=== PATIENT | female | born 1970 | race Two or more races ===

== ENCOUNTER 2025-04-02 08:34 | Emergency (ER) | payer MEDICAID, SELFPAY ==
[2025-04-02 08:35] VITALS: BMI 36.6
[2025-04-02 08:51] VITALS: BP 138/78; PULSE 64; RESP 18; TEMP 36.7; O2SAT 97
--- NOTE | 2025-04-02 08:58 | XR_ITS ---
Examination: CT brain head without contrast. 2-D sagittal coronal reconstructions Date and time of exam: 04/02/2025 0959 hrs Indications;: ground level fall, head pain CTDI: vol (mGy):48 DLP: (mGycm):928 Technique: Multiple CT axial sections of the brain have been obtained, 5 mm slice thickness. Contrast has not been administered. 2-D sagittal, coronal reconstructions have been obtained Low dose protocols were performed. One or more of the following dose reduction techniques were used; automated exposure control, adjustment of the mA and/or KV according to patient size, use of iterative reconstruction technique. Findings: No significant ventricular enlargement. Intra-axial or extra-axial hemorrhage density is not seen. No mass effect or midline shift Basal cisterns are not remarkable. Fourth ventricle is midline. Cranial vault intact. Impression: Negative for acute hemorrhage, mass effect or midline shift
--- NOTE | 2025-04-02 08:58 | XR_ITS ---
Examination: left elbow 3 views Technique: Elbow AP, oblique, lateral 3 views Exam date and time: 04/02/2025 0905 hours INdications: fell today with injury to elbow, pain Findings: No fracture or dislocation No elbow effusion Impression: No fracture or dislocation
--- NOTE | 2025-04-02 08:58 | XR_ITS ---
Examination: CT cervical spine without contrast 2-D sagittal reconstructions 2-D coronal reconstructions 3-D reconstructions. Exam date and time:04/02/2025 0959 hrs CTDI:vol (mGy) 16.5 DLP: (mGycm) 328 Indications ground level fall with neck pain Technique: Multiple 2 mm axial sections of the cervical spine have been obtained. The coronal and sagittal reconstructions have been obtained. 3-D reconstructions have been obtained. Low dose protocols were performed. One or more of the following dose reduction techniques were used; automated exposure control, adjustment of the mA and/or KV according to patient size, use of iterative reconstruction technique. Findings: Axial sections demonstrate intact base of the skull. C1 exhibit satisfactory relationship to the odontoid. No acute cervical vertebral body fracture seen. Alignment posterior spinous processes satisfactory. Impression: No acute cervical fracture.
--- NOTE | 2025-04-02 09:30 | EDNOTE_ITS ---
ED Fall Injury RME/HPI General Chief Complaint: Fall Stated Complaint: INJURY LEFT ELBOW AND HIT HEAD S/P FALL, NO LOC Time Seen by Provider: 04/02/25 08:48 Arrival date/time: 04/02/25 08:34 This is a 54-year-old female that comes into the emergency room with complaints of fall that happened prior to arrival. Patient states that she fell backwards and hit the back of her head. Patient states she slipped while cleaning the house. Patient had no loss of consciousness. Patient has a small hematoma to the back of her head and she has a small laceration to her left elbow area. Patient denies any other complaints. Related Data Previous Rx's ?Medication ?Instructions ?Recorded acetaminophen 650 mg 650 mg PO Q6HR PRN pain #20 tabs 05/08/19 tablet,extended release ibuprofen 600 mg tablet 600 mg PO Q6H PRN pain #20 t abs 05/08/19 ibuprofen 800 mg tablet 800 mg PO Q6H PRN pain #14 t abs 04/02/25 Allergies Allergy/AdvReac Type Severity Reaction Status Date / Time No Known Allergies Allergy Verified 04/02/25 08:37 Review of Systems Review of Systems Systems Reviewed: All systems reviewed, normal except as documented Past Medical History Surgical History SURGICAL: Positive Tubal Ligation Social History SMOKING STATUS: Never smoker Travel History EBOLA RISK: No ED Exam Narrative Physical exam: VITAL SIGNS: Reviewed. GENERAL APPEARANCE: Alert and interactive, follows commands, no acute distress HEAD AND FACE: Small hematoma to the back of patient had approximately nickel size. No open lacerations to her head. ENT: PERRL, conjuctiva pink and clear, eyelid no trauma, Mucous membrane moist. NECK: Supple, nontender, no nuchal rigidity. CHEST: No tenderness, no crepitus, no paradoxical movement, no retractions. LUNGS: breathing even and unlabored HEART: Regular rate, cap refill less than 2 seconds ABDOMEN: Soft, nondistended, no guarding, nontender, no rebound, no masses, NEUROLOGICAL: Gross motor function intact sensory function intact, Appropriate for age. MUSCULOSKELETAL: low back nontender, full range of motion. EXTREMITIES: No redness no swelling no skin breakdown on bilateral foot and leg. Distal neurovascular status intact bilateral foot SKIN: Color pink, dry, approximately 2 cm laceration to left elbow Course Quality Measures none Orders Category Date Time Status Cleanse Wound NEEDED Care 04/02/25 08:[address] cervical spine wo con Stat Exams 04/02/25 08:[address] head/brain wo con Stat Exams 04/02/25 08:58 Completed XR elbow comp LT min 3V Stat Exams 04/02/25 08:58 Completed Acetaminophen Tab [Tylenol ES Tab] Med 04/02/25 08:58 Discontinued 1,000 mg PO X1 ONE Ibuprofen Tab [Motrin Tab] Med 04/02/25 11:05 Discontinued 800 mg PO X1 ONE Lidocaine 1% 20 ml [Xylocaine 1% 20 ML] Med 04/02/25 08:59 Discontinued 10 ml INFL X1 ONE TET,DIP/PERT AC (Adult)-Tdap [Boostrix Adult (Tdap) Med 04/02/25 08:58 Discontinued Vacc] 0.5 ml IMI .ONCE ONE cephALEXin [Keflex] Med 04/02/25 11:05 Discontinued 500 mg PO X1 ONE Vital Signs Vital signs: Vital Signs Temperature 98.0 F 04/02/25 08:51 Pulse Rate 64 04/02/25 08:51 Respiratory Rate 18 04/02/25 08:51 Blood Pressure 138/78 H 04/02/25 08:51 Pulse Oximetry (%) 97 04/02/25 08:51 Oxygen Delivery Method Room Air 04/02/25 08:51 PROCEDURES: Laceration Laceration 1: Site: other (elbow ) Side (If applicable): left Size (cm): 2 Description: irregular Depth: simple, single layer Local Anesthetic: lidocaine 1% Amount of anesthesia used (mL): 5 Pre-repair: wound explored and irrigated extensively Skin layer closed with: nylon Suture size (cm): 4-0 Number of sutures: 6 Technique: simple, interrupted Fall MDM Narrative MDM Narrative:: elbow x ray Findings: No fracture or dislocation No elbow effusion Impression: No fracture or dislocation ct head: Findings: No significant ventricular enlargement. Intra-axial or extra-axial hemorrhage density is not seen. No mass effect or midline shift Basal cisterns are not remarkable. Fourth ventricle is midline. Cranial vault intact. Impression: Negative for acute hemorrhage, mass effect or midline shift ct cervical: Findings: Axial sections demonstrate intact base of the skull. C1 exhibit satisfactory relationship to the odontoid. No acute cervical vertebral body fracture seen. Alignment posterior spinous processes satisfactory. Impression: No acute cervical fracture. Today patient had xray and Ct scan There was no acute fracture seen. Exam appeared unremarkable. I explained to patient at length that if there was continued pain to this area or worsened to come back to ED or see primary provider for more xrays or further testing such as CT scan or MRI. X rays and CT scans are not perfect and sometimes serial films needed. Patient verbalized understanding. Patient states they will follow up with primary provider in 1-2 days or come back to ED if symptoms change or worsen. Patient data External records reviewed:: [facility] previous records Clinical information provided by:: patient Social determinants that could affect healthcare access:: none Patient has the following chronic illnesses:: none How is presenting disease/condition affected by chronic disease/condition?: no chronic disease Evaluation data The following diagnostics were reviewed and interpreted by me:: radiology exam(s) Lab and/or radiology exams considered but not ordered:: none Interpretation Summary: none Medications / Prescriptions Medications or Prescriptions considered but not ordered:: none Medication administrations:: Medication Administration History Discontinued Medications Acetaminophen (Acetaminophen 500 Mg Tablet) 1,000 mg PO X1 ONE Stop: 04/02/25 08:59 Last Admin: 04/02/25 09:40 Dose: 1,000 mg Documented By: Cephalexin HCl (Cephalexin 250 Mg Capsule) 500 mg PO X1 ONE Stop: 04/02/25 11:06 Last Admin: 04/02/25 11:19 Dose: 500 mg Documented By: Diphtheria/Tetanus/Acell Pertussis (Diphth,Pertuss(Acell),Tet Vac 0.5 Ml Syr- Adult) 0.5 ml IMi .ONCE ONE Stop: 04/02/25 08:59 Last Admin: 04/02/25 09:39 Dose: 0.5 ml Documented By: Ibuprofen (Ibuprofen Tab 400 Mg Tablet) 800 mg PO X1 ONE Stop: 04/02/25 11:06 Last Admin: 04/02/25 11:19 Dose: 800 mg Documented By: Lidocaine HCl (Lidocaine Hcl 1% 20 Ml Vial) 10 ml INFL X1 ONE Stop: 04/02/25 09:00 Last Admin: 04/02/25 09:40 Dose: 10 ml Documented By: see mar Consultations Consultation(s) initiated? (list below): No Diagnosis Fall Differential Diagnosis: syncope, dislocation of shoulder region, fracture of wrist, concussion with loss of consciousness and other (laceration, contusion ) Most likely diagnosis given after review of the tests above:: laceration, contusion Admission Indicated Admission indicated?: not indicated Admission Request Was there a request for admission?: No Disposition Plan Disposition Plan: Discharge Discharge Attestation Discharge Attestation: The patient and all family members were given an opportunity to ask questions and understood the discharge instructions. Discharge instructions specifically effects, indications for sooner follow up or return to the emergency department, and the expected course of current diagnosis. Patient condition: Stable Discharge Plan Plan Patient Disposition: HOME (Self Care) Patient condition on transfer: Stable Prescriptions/Referrals Prescriptions/Med Rec: New ibuprofen 800 mg tablet 800 mg PO Q6H PRN (Reason: pain) Qty: 14 0RF No Action acetaminophen 650 mg tablet extended release 650 mg PO Q6HR PRN (Reason: pain) Qty: 20 0RF Rx Instructions: Take 1 Tylenol with one 600 mg ibuprofen every 6 hours together ibuprofen 600 mg tablet 600 mg PO Q6H PRN (Reason: pain) Qty: 20 0RF Rx Instructions: Take 1 ibuprofen with one 650 mg Tylenol together Referrals: Lucas Polanco PA-C [Primary Care Provider] - In 1 week Problem List Clinical Impression: Laceration of elbow, Contusion of head Patient/Caregiver Discharge Instructions Discharge Activity: activity as tolerated Education Materials: ED Head Injury (Adult), ED Laceration: All Closures Additional Instructions: Brandi un brunilda con kapoor medico de cabecera en las proximas 24-48 horas. Regrese a la jen de emergencias si hay evidencia de que los signos o sintomas empeoran. Sutures can come out in 7 days. Print Language: Upper Sorbian Stand Alone Forms: Mary Anne Award Info., Patient Portal Info Letter PA/ANTHONY Supervising Physician PA/CLINICAL PSYCHOLOGIST Supervising Physician: jane
[2025-04-02] MEDS: DIPHTH,PERTUSS(ACELL),TET VAC 0.5 ML SYR- ADULT IMi (09:39)
[2025-04-02] MEDS: ACETAMINOPHEN 500 MG TABLET 1000 MG PO (09:40)
[2025-04-02] MEDS: LIDOCAINE HCL 1% 20 ML VIAL 10 ML INFL (09:40)
[2025-04-02] MEDS: IBUPROFEN TAB 400 MG TABLET 800 MG PO (11:19)
== END 2025-04-02 11:28 | disposition home or self-care (01) ==
PROVIDERS: Emergency Provider Emergency Medicine
DX: S51.012A Laceration without foreign body of left elbow, initial encounter (principal); S00.93XA Contusion of unspecified part of head, initial encounter; S19.9XXA Unspecified injury of neck, initial encounter; W01.10XA Fall on same level from slipping, tripping and stumbling with subsequent striking against unspecified object, initial encounter; Y93.E9 Activity, other interior property and clothing maintenance; Y92.009 Unspecified place in unspecified non-institutional (private) residence as the place of occurrence of the external cause
CPT/HCPCS: 12001; 70450; 72125; 73080; 90471; 90715; 99284; J3490; A9270